=== PATIENT | female | born 1940 | race Caucasian/White ===

== ENCOUNTER 2017-08-25 04:31 | Emergency (ER) | payer MEDICARE, OTHER ==
[~2017-08-25] VITALS: Ht 162.6 cm; Wt 74.6 kg
[2017-08-25] MEDS ORDERED: SODIUM CHLORIDE FLUSH 10ML SYR IVF ONE (05:30)
[2017-08-25] MEDS ORDERED: SODIUM CHLORIDE 0.9% 1,000ML IVBOLUS ONE (05:30)
[2017-08-25 05:31] LABS: BASOPHILS # (AUTO) 0.02 x10^3/uL (0-0.1); BASOPHILS % (AUTO) 0 % (0-1); EOSINOPHILS # (AUTO) 0.06 x10^3/uL (0-0.4); EOSINOPHILS % (AUTO) 1 % (1-7); LYMPHOCYTES # (AUTO) 1.13 x10^3/uL (1-3.4); LYMPHOCYTES % (AUTO) 21 % (22-44); MD NO; MEAN CORPUSCULAR HEMOGLOBIN 29.4 pg (27.0-34.8); MEAN CORPUSCULAR HGB CONC 34.1 g/dL (32.4-35.8); MEAN CORPUSCULAR VOLUME 86.2 fL (80-100); MEAN PLATELET VOLUME 7.8 fL (7.4-10.4); MONOCYTES # (AUTO) 0.32 x10^3/uL (0.2-0.8); MONOCYTES % (AUTO) 6 % (2-9); NEUTROPHILS % (AUTO) 71 % (42-75); PLATELET COUNT 264 x10^3/uL (130-400); RED BLOOD COUNT 4.83 x10^6/uL (3.82-5.3); RED CELL DISTRIBUTION WIDTH 13.5 % (9.6-15.2)
[2017-08-25 05:42] LABS: ALBUMIN 3.9 g/dL (3.4-5.0); ANION GAP 8 mmol/L (5-15); CALCIUM 9.9 mg/dL (8.5-10.1); CHLORIDE 108 mmol/L (98-107); CREATININE 0.85 mg/dL (0.55-1.02)
[2017-08-25] MEDS ORDERED: METHOCARBAMOL 750 MG TABLET ONE (05:56)
[2017-08-25] MEDS ORDERED: METHOCARBAMOL 750 MG TABLET PO ONE (06:00)
[2017-08-25] MEDS ORDERED: IBUPROFEN 200 MG TABLET ONE (06:52)
[2017-08-25] MEDS ORDERED: IBUPROFEN 200 MG TABLET PO ONE (07:00)
[2017-08-25 07:51] VITALS: BP 175/73
== END 2017-08-25 07:55 | disposition home or self-care (01) ==
LOC: ED 05:35
DX: S76.112A Strain of left quadriceps muscle, fascia and tendon, initial encounter (principal); Z79.899 Other long term (current) drug therapy; X58.XXXA Exposure to other specified factors, initial encounter; Y93.89 Activity, other specified; Y92.098 Other place in other non-institutional residence as the place of occurrence of the external cause; Y99.8 Other external cause status
CPT/HCPCS: 36415; 80048; 82040; 83735; 85025; 96360; 99284; J7030

== ENCOUNTER → 2020-11-12 | Outpatient (CLI) | payer MEDICARE, OTHER ==
[~2020-11-12] MED LIST: ASPI81TA45 PO; METO25TA35 PO
[2020-11-12 13:47] LABS: BASOPHILS % (AUTO) 0 % (0-1); EOSINOPHILS % (AUTO) 0 % (1-7); LYMPHOCYTES % (AUTO) 26 % (22-44); MEAN CORPUSCULAR HEMOGLOBIN 29.8 pg (27.0-34.8); MEAN CORPUSCULAR HGB CONC 33.7 g/dL (32.4-35.8); MEAN PLATELET VOLUME 8.1 fL (7.4-10.4); MONOCYTES % (AUTO) 6 % (2-9); NEUTROPHILS % (AUTO) 67 % (42-75); PLATELET COUNT 238 x10^3/uL (130-400); RED BLOOD COUNT 4.76 x10^6/uL (3.82-5.3); RED CELL DISTRIBUTION WIDTH 14.2 % (9.6-15.2)
[2020-11-12 13:48] LABS: MD NO
[2020-11-12 13:56] LABS: ANION GAP 4 mmol/L (5-15); CALCIUM 9.4 mg/dL (8.5-10.1); CHLORIDE 110 mmol/L (98-107); CREATININE 0.78 mg/dL (0.55-1.02)
[2020-11-12 13:58] LABS: INTERNATIONAL NORMALIZED RATIO 1.02 (0.93-1.1); PROTHROMBIN TIME 10.9 Seconds (9.6-11.5)
[2020-11-12 13:59] LABS: MICROSCOPIC NOT IND
== END | disposition home or self-care (01) ==
LOC: STAR 12:31
PROVIDERS: ATTEND Neurological Surgery
DX: Z01.818 Encounter for other preprocedural examination (principal); M48.061 Spinal stenosis, lumbar region without neurogenic claudication; M47.814 Spondylosis without myelopathy or radiculopathy, thoracic region; I44.0 Atrioventricular block, first degree
CPT/HCPCS: 36415; 71046; 80048; 81003; 85025; 85610; 85730; 93005

== ENCOUNTER → 2020-11-22 | Outpatient (CLI) | payer MEDICARE, OTHER | END | disposition home or self-care (01) | LOC: STAR 09:14 | PROVIDERS: ATTEND Neurological Surgery | DX: Z20.822 Contact with and (suspected) exposure to COVID-19 (principal) | CPT/HCPCS: U0003; U0005 ==

== ENCOUNTER 2020-11-28 18:05 | Observation (INO) | payer MEDICARE, OTHER ==
[~2020-11-28] VITALS: Ht 162.6 cm; Wt 76.8 kg
[~2020-11-28 18:05] MED LIST changes: +ACETAMINOPHEN 325 MG TABLET PO PRN; +BACITRACIN 50,000 UNIT IRRIG ONE; +BACITRACIN 50,000 UNIT ONE; +BUPIVACAINE/PF 0.25% ONE; +BUPIVACAINE/PF-EPI 0.25% 1:200K INFIL ONE; +CEFAZOLIN 1,000 MG ONE; +CHLORHEXIDINE 15 ML UDC PO ONE; +DEXAMETHASONE 4 MG/ML, 1ML ONE; +FENTANYL PF 100 MCG/2ML ONE; +FENTANYL PF 250 MCG/5ML ONE; +GLYCOPYRROLATE 0.2MG/1ML, 5ML ONE; +HYDROmorphone 1 MG/ML, 1ML INJ IVPush PRN; +LABETALOL 5MG/ML, 20ML IV PRN; +LACTATED RINGERS 1,000 ML IV SCH; +LIDOCAINE-MPF 1%, 2ML INFIL ONE; +LISI5TAB7 PO; +LORazepam 2 MG/ML, 1ML IVPush PRN; +METHOCARBAMOL 1,000 MG in DEXTROSE 5% 100 ML IV PRN; +NEOSTIGMINE 1 MG/ML, 10ML ONE; +ONDANSETRON 2MG/ML, 2ML IVPush PRN; +ONDANSETRON 2MG/ML, 2ML ONE; +OXYcodone 5 MG/5 ML ORAL.SOL UDC PO PRN; +PROMETHAZINE 25 MG SUPP PR PRN; +PROMETHAZINE 25 MG/ML, 1ML IVPush PRN; +PROPOFOL 10 MG/ML, 20ML ONE; +ROCURONIUM 10MG/ML,5ML ONE; +SUCCINYLCHOLINE 20 MG/ML, 10ML ONE; +hydrALAzine 20 MG/ML, 1ML IV PRN; +methylPREDNISolone SOD SUCC 125 MG/2 ML ONE
[2020-11-28] MEDS ORDERED: BISACODYL 10 MG SUPP PR PRN (18:30)
[2020-11-28] MEDS ORDERED: MAGNESIUM HYDROXIDE 8%, 30ML UDC PO PRN (18:30)
[2020-11-28] MEDS ORDERED: HYDROmorphone 1 MG/ML, 1ML INJ IVPush PRN (18:30)
[2020-11-28] MEDS ORDERED: PHARMACY MAY ADJ FOR RENAL FX MC PRN (18:30)
[2020-11-28] MEDS ORDERED: DIPHENHYDRAMINE 50 MG/ML, 1ML IVPush PRN (18:30)
[2020-11-28] MEDS ORDERED: ONDANSETRON 2MG/ML, 2ML IVPush PRN (18:30)
[2020-11-28] MEDS ORDERED: LABETALOL 5MG/ML, 20ML IVPush PRN (18:30)
[2020-11-28] MEDS ORDERED: FENTANYL PF 100 MCG/2ML ONE (18:35)
[2020-11-28] MEDS ORDERED: OXYcodone 5 MG/5 ML ORAL.SOL UDC ONE (18:35)
[2020-11-28] MEDS: FENTANYL PF 100 MCG/2ML IV PRN ×2 (18:38→18:46)
[2020-11-28] MEDS ORDERED: HYDROmorphone 1 MG/ML, 1ML INJ ONE (18:51)
[2020-11-28] MEDS ORDERED: LABETALOL 5MG/ML, 20ML ONE (18:52)
[2020-11-28] MEDS ORDERED: hydrALAzine 20 MG/ML, 1ML ONE (19:39)
[2020-11-28] MEDS ORDERED: NS + 20MEQ KCL 1,000 ML IV SCH (20:30)
[2020-11-28] MEDS ORDERED: METOPROLOL TARTRATE 25 MG TAB PO SCH (21:00)
[2020-11-28] MEDS: OXYcodone/APAP 5/325MG TABLET PO PRN (22:47)
[2020-11-29 00:22] VITALS: BP 121/68
[2020-11-29] MEDS: CEFAZOLIN PMX 1GM/50ML 50 ML IVPB SCH ×2 (02:02→10:14)
[2020-11-29] MEDS: OXYcodone/APAP 5/325MG TABLET PO PRN ×2 (03:09→08:50)
[2020-11-29 04:33] VITALS: BP 122/68
[2020-11-29 07:21] VITALS: BP 121/70
[2020-11-29] MEDS ORDERED: OXYC1TAB14 PO (08:39)
[2020-11-29] MEDS ORDERED: TIZA4TAB2 PO (08:39)
[2020-11-29] MEDS ORDERED: LISINOPRIL 5 MG TABLET PO SCH (09:00)
[2020-11-29] MEDS ORDERED: TIZANIDINE 2MG TABLET PO PRN (09:00)
[2020-11-29] MEDS ORDERED: SENNA/DOCUSATE TABLET PO SCH (09:00)
== END 2020-11-29 15:15 | disposition home or self-care (01) ==
LOC: OR 18:05 → ORIP 18:14 → 4NE 20:06 → DCLOUNGE 11-29 12:36
PROVIDERS: ADMIT Neurological Surgery; ATTEND Neurological Surgery
DX: M48.061 Spinal stenosis, lumbar region without neurogenic claudication (principal); M54.16 Radiculopathy, lumbar region; I10 Essential (primary) hypertension; J45.909 Unspecified asthma, uncomplicated; Z79.899 Other long term (current) drug therapy
CPT/HCPCS: 63047; 72100; 96361; 96365; 96366; 97162; 97165; G0378; J0360; J0690; J1100; J1170; J2405; J2704; J2710; J2800; J3010; J3480; J3490; J7120; 76000; J0330; J2930